=== PATIENT | female | born 1990 | race Caucasian/White ===

== ENCOUNTER 2018-08-21 06:12 | Inpatient (IN) | payer MEDICAID ==
[~2018-08-21] VITALS: Ht 177.8 cm; Wt 108.0 kg
[~2018-08-21 06:12] MED LIST: ACET-709 PO; AMOX875T PO; AZIT500T PO; DOCU-131 PO; DOXY100C15 PO; IBUP-1223 PO; LORAZEPAM PO; MIRT30TA4 PO; OXYC-302 PO; OXYC1TAB7 PO; PERCOCET PO; TRAZ50TA66 PO
[2018-08-21] MEDS ORDERED: OXYTOCIN 30U/ 0.9% NaCL 500ML 500 ML IV PRN (06:22)
[2018-08-21] MEDS ORDERED: OXYTOCIN 30U/ 0.9% NaCL 500ML 500 ML IV ONE (06:22)
[2018-08-21] MEDS ORDERED: FENTANYL PF 100 MCG/2ML IVPush PRN (06:30)
[2018-08-21] MEDS ORDERED: METOCLOPRAMIDE 5 MG/ML, 2ML IVPush PRN (06:30)
[2018-08-21] MEDS ORDERED: SODIUM CITRATE/CITRIC ACID 15 ML UDC PO PRN (06:30)
[2018-08-21] MEDS ORDERED: FENTANYL PF 100 MCG/2ML IV PRN (06:30)
[2018-08-21] MEDS ORDERED: D5%-LACTATED RINGERS 1,000 ML IV SCH (06:38)
[2018-08-21 07:03] LABS: BASOPHILS # (AUTO) 0.03 x10^3/uL (0-0.1); BASOPHILS % (AUTO) 0 % (0-1); EOSINOPHILS # (AUTO) 0.24 x10^3/uL (0-0.4); EOSINOPHILS % (AUTO) 2 % (1-7); LYMPHOCYTES # (AUTO) 2.78 x10^3/uL (1-3.4); LYMPHOCYTES % (AUTO) 22 % (22-44); MD NO; MEAN CORPUSCULAR HEMOGLOBIN 28.7 pg (27.0-34.8); MEAN CORPUSCULAR HGB CONC 33.1 g/dL (32.4-35.8); MEAN CORPUSCULAR VOLUME 86.8 fL (80-100); MEAN PLATELET VOLUME 9.5 fL (7.4-10.4); MONOCYTES # (AUTO) 0.68 x10^3/uL (0.2-0.8); MONOCYTES % (AUTO) 5 % (2-9); NEUTROPHILS # (AUTO) 9.11 x10^3/uL (1.8-6.8); NEUTROPHILS % (AUTO) 71 % (42-75); PLATELET COUNT 217 x10^3/uL (130-400); RED BLOOD COUNT 4.25 x10^6/uL (3.82-5.3); RED CELL DISTRIBUTION WIDTH 14.2 % (9.6-15.2)
[2018-08-21] MEDS ORDERED: NEWBORN KIT ONE (07:11)
[2018-08-21] MEDS ORDERED: OXYTOCIN 30U/ 0.9% NaCL 500ML 500 ML ONE ×2 (07:11→18:28)
[2018-08-21] MEDS ORDERED: LIDOCAINE 1%, 20ML ONE (07:11)
[2018-08-21] MEDS ORDERED: MISOPROSTOL 200 MCG TABLET ONE (07:11)
[2018-08-21] MEDS ORDERED: FENTANYL/BUPIV./NS/PF 250 ML EPIDCONT SCH (09:02)
[2018-08-21] MEDS ORDERED: FENTANYL PF 500 MCG, BUPIVACAINE/PF 0.5%, 30ML 62.5 ML in SODIUM CHLORIDE 0.9% 177.5 ML EPIDCONT SCH (09:30)
[2018-08-21] MEDS ORDERED: LACTATED RINGERS 1,000 ML IVBOLUS PRN (09:30)
[2018-08-21] MEDS ORDERED: BUPIVACAINE 0.25% ONE (09:53)
[2018-08-21] MEDS: LACTATED RINGERS 1,000 ML IV SCH ×3 (10:21→22:38)
[2018-08-21] MEDS: NICOTINE 7 MG/24 HR PATCH.TD24 TD SCH (11:20)
[2018-08-21] MEDS: AMOXICILLIN/CLAV 875-125MG TABLET PO SCH ×2 (11:20→22:06)
[2018-08-21] MEDS ORDERED: IBUPROFEN 600 MG TABLET ONE (18:28)
[2018-08-21] MEDS ORDERED: BISACODYL 10 MG SUPP PR PRN (18:30)
[2018-08-21] MEDS ORDERED: CEFAZOLIN PMX 2GM/50ML 50 ML IVPB ONE (18:30)
[2018-08-21] MEDS ORDERED: ACETAMINOPHEN 325 MG TABLET PO PRN (18:30)
[2018-08-21] MEDS ORDERED: MISOPROSTOL 200 MCG TABLET PR PRN (18:30)
[2018-08-21] MEDS ORDERED: HYDROcodone/APAP 5/325 TABLET PO PRN (18:30)
[2018-08-21] MEDS ORDERED: ONDANSETRON 2MG/ML, 2ML IV PRN (18:30)
[2018-08-21] MEDS ORDERED: RHOGAM FROM BLOOD BANK 1 NOTE EA IM ONE (18:30)
[2018-08-21] MEDS ORDERED: CEFAZOLIN 2,000 MG in SODIUM CHLORIDE 0.9% 50 ML IV SCH (18:30)
[2018-08-21] MEDS: OXYTOCIN 30U/ 0.9% NaCL 500ML 500 ML IV SCH (18:33)
[2018-08-21] MEDS ORDERED: IBUPROFEN 800 MG TABLET ONE (18:36)
[2018-08-21] MEDS: IBUPROFEN 800 MG TABLET PO PRN (18:37)
[2018-08-21 20:00] VITALS: BP 112/68
[2018-08-21] MEDS: OXYcodone/APAP 5/325MG TABLET PO PRN (22:08)
[2018-08-21] MEDS: DOCUSATE 100 MG CAPSULE PO PRN (22:09)
[2018-08-22 00:15] VITALS: BP 110/63
[2018-08-22] MEDS: OXYcodone/APAP 5/325MG TABLET PO PRN ×3 (04:16→17:58)
[2018-08-22] MEDS: IBUPROFEN 800 MG TABLET PO PRN ×2 (04:16→11:58)
[2018-08-22] MEDS: OXYTOCIN 30U/ 0.9% NaCL 500ML 500 ML IV SCH (04:23)
[2018-08-22 04:30] VITALS: BP 111/69
[2018-08-22 05:23] LABS: MEAN CORPUSCULAR HEMOGLOBIN 28.3 pg (27.0-34.8); MEAN CORPUSCULAR HGB CONC 32.2 g/dL (32.4-35.8); MEAN CORPUSCULAR VOLUME 88.1 fL (80-100); MEAN PLATELET VOLUME 9.9 fL (7.4-10.4); PLATELET COUNT 199 x10^3/uL (130-400); RED BLOOD COUNT 4.25 x10^6/uL (3.82-5.3); RED CELL DISTRIBUTION WIDTH 13.7 % (9.6-15.2)
[2018-08-22 06:34] LABS: BASOPHILS # (AUTO) 0.05 x10^3/uL (0-0.1); BASOPHILS % (AUTO) 0 % (0-1); EOSINOPHILS # (AUTO) 0.17 x10^3/uL (0-0.4); EOSINOPHILS % (AUTO) 1 % (1-7); LYMPHOCYTES # (AUTO) 3.18 x10^3/uL (1-3.4); LYMPHOCYTES % (AUTO) 18 % (22-44); MD SCAN; MONOCYTES # (AUTO) 0.99 x10^3/uL (0.2-0.8); MONOCYTES % (AUTO) 6 % (2-9); NEUTROPHILS # (AUTO) 13.75 x10^3/uL (1.8-6.8); NEUTROPHILS % (AUTO) 76 % (42-75)
[2018-08-22] MEDS: LACTATED RINGERS 1,000 ML IV SCH (06:38)
[2018-08-22 08:04] VITALS: BP 111/69
[2018-08-22] MEDS ORDERED: PRENATAL VIT/IRON/FA 1 EACH TABLET PO SCH (09:00)
[2018-08-22] MEDS: DOCUSATE 100 MG CAPSULE PO PRN (09:10)
[2018-08-22] MEDS: AMOXICILLIN/CLAV 875-125MG TABLET PO SCH (09:10)
[2018-08-22] MEDS: NICOTINE 7 MG/24 HR PATCH.TD24 TD SCH (11:53)
[2018-08-22] MEDS ORDERED: IBUP-1222 PO (18:07)
== END 2018-08-22 18:33 | disposition home or self-care (01) | DRG 806 ==
LOC: LDIP 06:12 → 2NW 19:55
PROVIDERS: ADMIT Obstetrics & Gynecology; ATTEND Obstetrics & Gynecology
PROC: 10907ZC Drainage of Amniotic Fluid, Therapeutic from Products of Conception, Via Natural or Artificial Opening (ICD-10-PCS; principal; 2018-08-21)
PROC: 10E0XZZ Delivery of Products of Conception, External Approach (ICD-10-PCS; 2018-08-21)
PROC: 10D17Z9 Manual Extraction of Products of Conception, Retained, Via Natural or Artificial Opening (ICD-10-PCS; 2018-08-21)
PROC: 0HQ9XZZ Repair Perineum Skin, External Approach (ICD-10-PCS; 2018-08-21)
PROC: 3E0R3BZ Introduction of Anesthetic Agent into Spinal Canal, Percutaneous Approach (ICD-10-PCS; 2018-08-21)
PROC: 00HU33Z Insertion of Infusion Device into Spinal Canal, Percutaneous Approach (ICD-10-PCS; 2018-08-21)
PROC: 3E033VJ Introduction of Other Hormone into Peripheral Vein, Percutaneous Approach (ICD-10-PCS; 2018-08-21)
DX: O76 Abnormality in fetal heart rate and rhythm complicating labor and delivery (principal); O23.43 Unspecified infection of urinary tract in pregnancy, third trimester; Z37.0 Single live birth; O72.0 Third-stage hemorrhage; O99.52 Diseases of the respiratory system complicating childbirth; O70.0 First degree perineal laceration during delivery; Z3A.39 39 weeks gestation of pregnancy; B95.2 Enterococcus as the cause of diseases classified elsewhere; Z88.2 Allergy status to sulfonamides; J45.909 Unspecified asthma, uncomplicated
CPT/HCPCS: 36415; S0020; 85025; 86850; 86900; G0378; J0690; J3010; J3490; J2590; J7050; J7120